=== PATIENT | female | born 1940 | race Caucasian/White ===

== ENCOUNTER 2017-01-24 15:16 | Inpatient (IN) | payer OTHER ==
--- NOTE | ~2017-01-24 | HP ---
History And Physical [place] [id number] [facility] [place] [place]. [address] NAME: NAPOLEON OJEDA : 42 STATUS : ADM IN [facility]#: [id number] AGE: 76 ADM/REG DATE : 01/24/17 MR#: [id number] REPORT SERV DATE: 01/25/17 DICTATED BY: RICHELLE PEREZ DATE: 01/24/17 REPORT STATUS : Draft TRANSCRIBED BY: MODL DATE: 01/24/17 DATE OF ADMISSION: 01/24/2017 REASON FOR ADMISSION: Transfer from [facility] for Dr. Alberto to potentially do an ERCP and for Infectious Disease to help manage with AJ bacteremia. CONSULTANTS: PCP is Dr. Mao Campo. Supervisor Quilting is Dr. Simone Mosquera. Painter And Body Work is Dr. Jorge Mosquera. CHIEF COMPLAINT: "I am still having nausea and vomiting." HISTORY OF PRESENT ILLNESS: A 76-year-old white female with a history of diet-controlled diabetes; obstructive sleep apnea; hypoparathyroidism, status post parathyroidectomy; lymphoma, status post chemotherapy approximately six years ago, still followed by Dr. Haji periodically at [facility]. The patient presented to [facility] on 01/12/2017 with complaints of nausea, vomiting, abdominal pain with epigastric and right upper quadrant pain. She was recently admitted to that hospital for COPD exacerbation and a recent EGD with dilation. CT scan done in the ER on the showed an increasing dilated intra- and extra-hepatic biliary duct as well as a hiatal hernia. She had an elevated white blood cell count of 13,000 and a negative urinalysis. She was admitted for nausea, vomiting, right upper quadrant abdominal pain with elevated alkaline phosphatase, and dilated biliary ducts concerning for cholangitis. The patient had a complicated hospital course which would explain why she had been there for two weeks. She was initially started on broad-spectrum antibiotics for concern for cholangitis. GI Medicine was consulted. During that time, she had a COPD exacerbation and Pulmonary Medicine was consulted. An MRCP was ordered by GI which did not reveal any retained stone, but did confirm history of cholecystectomy and intra- and extra-hepatic biliary ductal dilatation. GI Medicine proceeded to do an ERCP, however, they were not able to visualize and cannulate the common bile duct, possibly x2 upwards. After the procedure, she had an elevation in her lipase that was concerning for a post ERCP pancreatitis. On 01/19/2017, the patient developed a fever, blood cultures were drawn which then grew out reportedly methicillin-resistant Staphylococcus epidermidis. She was then started on vancomycin and the broad-spectrum antibiotics that were initially started had been discontinued. Her white count had improved and they repeated blood cultures two days later, which showed one of two being still positive. There was concern for a possible port infection. The patient states that [facility] has been accessing her port as they have been having a difficult time maintaining an IV. The patient also reports that her port was accessed periodically at Dr. Haji's office just to maintain it. The last time it was used prior to admission was approximately in July or August for a blood transfusion at Dr. Haji's office. The patient was transferred to [facility] for Infectious Disease to help manage her bacteremia along with Dr. Shultz to perform an ERCP since it was difficult to cannulate by their GI doctor. The patient continues to have some nausea, vomiting, epigastric and right upper quadrant pain. She was on a regular diet at [facility] prior to transfer and says she does periodically vomit. The patient states that she feels like she has lost weight. Otherwise, the patient denies any diarrhea, chest pain, or shortness of breath. A transthoracic echocardiogram was done at [facility] which showed an EF of 78%, diastolic dysfunction stage I, but no obvious vegetation History And Physical [address] [address] NAME: NAPOLEON OJEDA : 42 STATUS : ADM IN [facility]#: [id number] AGE: 76 ADM/REG DATE : 01/24/17 MR#: [id number] REPORT SERV DATE: 01/25/17 DICTATED BY: RICHELLE PEREZ DATE: 01/24/17 REPORT STATUS : Draft TRANSCRIBED BY: MODL DATE: 01/24/17 on the visualized valves. REVIEW OF SYSTEMS: As per HPI. Otherwise, 10-point system review is negative. PAST MEDICAL HISTORY: Type 2 diabetes with hemoglobin A1c of 6.3; anemia of chronic disease; history of gout; history of coronary artery disease, status post GA in 1999; peripheral vascular disease; hypothyroidism, status post thyroidectomy; history of chronic hypoparathyroidism, status post parathyroidectomy; COPD. PAST SURGICAL HISTORY: She denies any cardiac stents or CABG. She did have a thyroidectomy and a parathyroidectomy and a cholecystectomy. She had a right carotid endarterectomy in January 2015. She had C-spine surgery, bilateral cataract surgery, history of neck surgery, index finger amputated, port placement. ALLERGIES: TO PENICILLIN AND CODEINE. SOCIAL HISTORY: She denies any alcohol or tobacco use. She has seven children. Lives in [place] with her daughter. FAMILY HISTORY: Brother has cardiovascular disease. Mother and father have diabetes. Brother has had a heart attack. Mother and father had a stroke. MEDICATIONS: Include allopurinol 100 mg daily, amlodipine 10 mg daily, calcitriol 0.5 mcg daily, calcium carbonate 500 mg q.i.d., Colace, DuoNeb, iron sulfate 325 mg daily, gabapentin 100 mg three times a day, levothyroxine 125 mcg daily, Lorazepam 0.5 mg at bedtime, magnesium oxide 400 mg twice a day, mirtazapine 45 mg at bedtime, Dousman p.r.n. pain, Pulmicort inhaler twice a day, ranitidine at bedtime, Rozerem 8 mg at bedtime daily. PHYSICAL EXAMINATION: VITAL SIGNS: Blood pressure is 148/65, saturating 92% on room air, temperature is 97.6, pulse is 85, respirations 20. GENERAL: She is no acute distress. Alert and oriented x3. Very pleasant. HEENT: Normocephalic and atraumatic head. Extraocular muscles are intact. Oropharynx is clear. NECK: Supple. No JVD. CARDIAC: Regular rhythm. No murmurs, rubs, or gallops. PULMONARY: Diffuse crackles, some mild wheezing. ABDOMEN: Obese, soft. It is tender to palpation in the epigastric area in the right upper quadrant. Positive bowel sounds. EXTREMITIES: No clubbing, cyanosis, or edema. NEUROLOGIC: No focal deficits. PSYCHIATRIC: The patient is cooperative. Mood is appropriate. SKIN: Warm and dry. LABORATORY DATA: Labs at outside hospital show white blood cell count of 5.8, hemoglobin 9.7, hematocrit 30, platelet of 277. Sodium of 141, potassium 4, chloride 103, carbon History And Physical [address] [place]. [address] NAME: NAPOLEON OJEDA : 42 STATUS : ADM IN PAT#: [id number] AGE: 76 ADM/REG DATE : 01/24/17 MR#: [id number] REPORT SERV DATE: 01/25/17 DICTATED BY: RICHELLE PEREZ DATE: 01/24/17 REPORT STATUS : Draft TRANSCRIBED BY: JESSE DATE: 01/24/17 dioxide 30, BUN 7, creatinine 0.7, glucose 111, calcium 9.3, albumin is 3. Alkaline phosphatase is 151, ALT 26, AST 24, total bilirubin 0.3, phosphorus is 5.5, magnesium 1.6. Vancomycin trough is 9.8 on 01/22/2017. IMPRESSION: 1. Methicillin resistant Staphylococcus epidermidis bacteremia, source unknown, most likely due to her port infection. 2. Intra- and extra-hepatic ductal dilatation with nausea, vomiting, abdominal pain. 3. Post ERCP pancreatitis. 4. Chronic obstructive pulmonary disease with mild exacerbation. 5. Hypocalcemia. 6. Chronic hypoparathyroidism, status post parathyroidectomy. 7. Diet-controlled type 2 diabetes with an A1c of 6.3. 8. Hypothyroidism. PLAN: Obtain a CBC, CMP, procalcitonin, and repeat blood cultures. We will also obtain a urinalysis and culture. Check a thyroid panel. Continue vancomycin per pharmacy protocol. We will consult Dr. Alberto to evaluate for any ERCP. Consult Infectious Disease to help with bacteremia. May need port removal. Obtain a CT chest, abdomen, and pelvis with IV and p.o. contrast to evaluate any ductal dilatation and along with her pancreas and any chest issues. Continue her on prednisone 40 mg once a day. STERLING/JESSE Richelle Perez MD / [id number] CC: MD Mao Sarabia MD Robert F Marcum, M.D. James Marcum, M.D.
--- NOTE | ~2017-01-24 | OP ---
Record Of Operation [facility] [address] [place]. [address] NAME: NAPOLEON DANIEL : 42 STATUS : ADM IN [facility]#: [id number] AGE: 76 ADM/REG DATE : 01/24/17 MR#: [id number] REPORT SERV DATE: 01/27/17 DICTATED BY: SAIMA SOLO DATE: 01/27/17 REPORT STATUS : Draft TRANSCRIBED BY: MODL DATE: 01/27/17 DATE OF PROCEDURE: 01/27/2017 PREOPERATIVE DIAGNOSES: 1. Infected right subclavian Port-A-Cath. 2. MRSA bacteremia. POSTOPERATIVE DIAGNOSES: 1. Infected right subclavian Port-A-Cath. 2. MRSA bacteremia. PROCEDURE: Right subclavian Port-A-Cath removal. ATTENDING SURGEON: Saima Solo MD CHIEF SURGEON: Roselyn Swanson. ANESTHESIA: Local. EBL: Minimal. COMPLICATIONS: None. SPECIMEN: Port-A-Cath with tubing. INDICATIONS FOR PROCEDURE: Ms. Daniel is a 76-year-old female, who was admitted to the hospital three days ago with bacteremia and she was ultimately found to have MRSA with concern of Port-A-Cath infection. For that reason, we have been asked to remove her Port-A- Cath. Risks and benefits were discussed with the patient in detail and she elected to proceed. DESCRIPTION OF PROCEDURE: The patient was seen and examined in her room. She was noted to have a right subclavian Port-A-Cath. The affected area was prepped and draped in the usual sterile fashion. Local anesthetic was used to infiltrate her previous skin incision. Using a 15 blade scalpel, the incision was created as well as dissected through the subcutaneous tissues sharply with a scalpel. Once down to the level of the Port-A-Cath bolster, Metzenbaum scissors were used to circumferentially dissect the bolster. A 15 blade scalpel was used to open the capsule surrounding the Port-A-Cath. The Port-A-Cath was removed from the capsule. 3-0 Vicryl suture was placed in a [id number] fashion around the site of tubing entry. The Port-A-Cath was attached, tubing was removed, and the catheter perhaps ligated with the 0 Vicryl suture. This was submitted to Pathology. The wound was irrigated. There was no evidence of purulence. The skin was then reapproximated with interrupted inverted 3-0 Vicryl suture, and sterile dressing was applied. The patient tolerated the procedure well. DICTATED BY: Roselyn Swanson MD Record Of Operation [address] [address] NAME: NAPOLEON DANIEL : 42 STATUS : ADM IN PAT#: [id number] AGE: 76 ADM/REG DATE : 01/24/17 MR#: [id number] REPORT SERV DATE: 01/27/17 DICTATED BY: SAIMA SOLO SOBIA DATE: 01/27/17 REPORT STATUS : Draft TRANSCRIBED BY: MODDaniela DATE: 01/27/17 /JESSE Saima Solo MD / [id number] CC: Alan Menchaca MD
--- NOTE | ~2017-01-24 | EGD ---
EGD REPORT [facility] [address] [address] NAME: SHIRLEY DANIEL : 42 STATUS : ADM IN PAT#: [id number] AGE: 76 ADM/REG DATE : 01/24/17 MR#: [id number] REPORT SERV DATE: 01/26/17 DICTATED BY: ELISEO OLSEN DATE: 01/26/17 REPORT STATUS : Draft [facility]ANS[facility]ED [facility]: [facility] DATE: 01/26/17 [facility] Patient Name: Shirley Daniel. Date of : 1940 Attending MD: ELISEO OLSEN MD Procedure Date No Time: 01/26/2017 Procedure: Upper EUS Indications: Common bile duct dilation (acquired) seen on CT scan Medicines: Monitored Anesthesia Care Complications: No immediate complications. Estimated blood loss: Minimal. Procedure: Pre-Anesthesia Assessment: - ASA Grade Assessment: IV - A patient with severe systemic disease that is a constant threat to life. After obtaining informed consent, the endoscope was passed under direct vision. Throughout the procedure, the patient's blood pressure, pulse, and oxygen saturations were monitored continuously. The Endoscope was introduced through the mouth, and advanced to the second part of duodenum. The GIF [id number] was introduced through the mouth, and advanced to the second part of duodenum. The upper EUS was accomplished without difficulty. The patient tolerated the procedure well. Findings: Endoscopic Finding : The examined esophagus was normal. A medium-sized hiatus hernia was present. Patchy mild inflammation characterized by erosions and erythema was found in the gastric body and in the gastric antrum. Biopsies were taken with a cold forceps for Helicobacter pylori testing. Estimated blood loss was minimal. The examined duodenum was endoscopically normal. Endosonographic Finding : There was no sign of significant endosonographic abnormality in the ampulla. No masses were identified. There was dilation in the common bile duct which measured up to 13 mm. Endosonographic imaging of the common bile duct showed no stones, no sludge and no stricture. There was no sign of significant endosonographic abnormality in the entire pancreas. No pathologic lymphadenopathy, no masses, no cysts, the pancreatic duct was thin in caliber. Endosonographic imaging of the visualized portion of the liver showed no abnormalities. No lymphadenopathy seen. EGD REPORT [id number] [place]. [address] NAME: SHIRLEY DANIEL : 42 STATUS : ADM IN [facility]#: [id number] AGE: 76 ADM/REG DATE : 01/24/17 MR#: [id number] REPORT SERV DATE: 01/26/17 DICTATED BY: ELISEO OLSEN DATE: 01/26/17 REPORT STATUS : Draft TRANSCRIBED BY: [employer] DATE: 01/26/17 A limited doppler examination was performed and revealed no significant vascular abnormalities. Impression: - Hiatus hernia. - Gastritis. Biopsied. - There was dilation in the common bile duct which measured up to 13 mm. This is likely physiologic and a consequence of prior cholecystectomy. No stones or sludge seen on the entire examination. No suggestion of obstruction. Recommendation: - [facility] patient to [facility] care. - Await path results. - Use Protonix (pantoprazole) 40 mg PO daily. - Clear liquid diet. - ERCP not indicated Procedure Code(s): --- Professional --- 57022, Esophagogastroduodenoscopy, flexible, transoral; with endoscopic ultrasound examination, including the esophagus, stomach, and either the duodenum or a surgically altered stomach where the jejunum is examined distal to the anastomosis 60967, 59, Esophagogastroduodenoscopy, flexible, transoral; with biopsy, single or multiple Diagnosis Code(s): --- Professional --- K44.9, Diaphragmatic hernia without obstruction or gangrene K29.70, Gastritis, unspecified, without bleeding K83.8, Other specified diseases of biliary tract CPT copyright 2013 [employer]. All rights reserved. The codes documented in this report are preliminary and upon assembler truck trailer review may be revised to meet current compliance requirements. Eliseo Olsen MD ELISEO OLSEN MD 01/26/2017 7:55 AM This report has been signed electronically. Number of Addenda: 0 Note Initiated On: 01/26/2017 7:04 AM Scope Withdrawal Time 0 hours 0 minutes 0 seconds EGD REPORT [facility] [address] [address] NAME: SHIRLEY DANIEL : 42 STATUS : ADM IN PAT#: [id number] AGE: 76 ADM/REG DATE : 01/24/17 MR#: [id number] REPORT SERV DATE: 01/26/17 DICTATED BY: ELISEO OLSEN DATE: 01/26/17 REPORT STATUS : Draft [facility]ANSCRIBED BY: [facility] DATE: 01/26/17 [facility] [address] [address]
--- NOTE | ~2017-01-24 | CN ---
Consultation Report [facility] [address] [place]. [address] NAME: NAPOLEON DANIEL : 42 STATUS : ADM IN [facility]#: [id number] AGE: 76 ADM/REG DATE : 01/24/17 MR#: [id number] REPORT SERV DATE: 01/25/17 DICTATED BY: REGINA SALTER DATE: 01/25/17 REPORT STATUS : Draft TRANSCRIBED BY: MODDaniela DATE: 01/25/17 GI CONSULTATION DATE OF CONSULTATION: 01/25/2017 REASON FOR CONSULTATION: Evaluation and management of patient's nausea, vomiting, need for ERCP. HISTORY OF PRESENT ILLNESS: Ms. Daniel is a pleasant 76-year-old female patient, who was a transfer from [facility] on 01/24/2017. She was admitted there on 01/12/2017 secondary to a chief complaint of nausea, vomiting. She had a CT scan that showed ductal dilatation. Elevated alkaline phosphatase only. Questionable cholangitis. She was maintained on broad-spectrum antibiotics. GI was consulted. They did see her. They ordered MRCP that did not confirm retained stones. They proceeded with an ERCP on 01/16/2017, however, this was a difficult exam, and they were unable to cannulate the common bile duct. She did develop elevated pancreatic enzymes, status post ERCP. She had low- grade fever. Blood cultures were drawn on the , which showed AJ bacteremia. She was to see initially Dr. Shultz in the outpatient setting for endoscopic ultrasound and ERCP, however, she has had positive blood cultures. Symptoms have persisted thus prompting her transfer here. She states that she had her gallbladder removed roughly four months ago for symptoms similar to what she presented with on the , status post cholecystectomy. She had no improvement in her symptoms. The day of admission, she states, she awoke around 4 a.m. with abdominal pain, took a pain tablet which she states only stayed down for a few minutes. She started to have nausea and vomiting with repeated retching and vomiting. No coffee grounds. No hematemesis. She has a history of EGD with esophageal dilation on 12/19/2016. Per review of the notes, she had normal esophagus, proximal, middle, and distal segments. No strictures or masses. Dilated with 54-Yi Savary showed a 5 cm hiatal hernia. Nonerosive gastritis in the antrum of the stomach with biopsies being taken. Duodenum was normal. Her liver enzymes have been normal. She has eaten today, but states she has vomited that up also. I have discussed with her that we will plan on pursuing endoscopic ultrasound tomorrow with Dr. Alberto. Risks, benefits, alternatives, complications have been detailed for her to include, but not limited to, risk of bleeding, perforation, infection, reaction to medications, as well as cardiac and pulmonary side effects. It should be noted that she does have a right upper chest Port-A-Cath, which is a potential consideration of her bacteremia and that is being considered for removal also. PAST MEDICAL HISTORY: Type 2 diabetes, diet controlled; anemia of chronic disease; gout; coronary artery disease, status post [place]; peripheral vascular disease; hypothyroidism, status post thyroidectomy; history of chronic hypoparathyroidism, status post parathyroidectomy; COPD. PAST SURGICAL HISTORY: Cardiac stents and CABG, thyroidectomy, parathyroidectomy, cholecystectomy, right carotid endarterectomy, C-spine surgery, bilateral cataract surgery, index finger amputation, Port-A-Cath placement, neck surgery. Consultation Report [address] [place]. [address] NAME: NAPOLEON DANIEL : 42 STATUS : ADM IN [facility]#: [id number] AGE: 76 ADM/REG DATE : 01/24/17 MR#: [id number] REPORT SERV DATE: 01/25/17 DICTATED BY: REGINA SALTER DATE: 01/25/17 REPORT STATUS : Draft TRANSCRIBED BY: JESSE DATE: 01/25/17 ALLERGIES: PENICILLIN AND CODEINE. SOCIAL HISTORY: Denies alcohol, tobacco, or illicits. She lives in [place] with one daughter. FAMILY HISTORY: Noncontributory from a GI standpoint. HOME MEDICATIONS: Consist of allopurinol, amlodipine, calcitriol, calcium carbonate, Colace, DuoNebs, iron sulfate, gabapentin, levothyroxine, lorazepam, magnesium oxide, mirtazapine, [place], Pulmicort, ranitidine, Rozerem. REVIEW OF SYSTEMS: A 10-point review of systems has been obtained with pertinent positives being addressed in the history of present illness. PHYSICAL EXAMINATION: VITAL SIGNS: Temperature 97.6, pulse 80, respirations 18, blood pressure is 132/60. NEURO: Reveals an alert female, resting in bed with no obvious focal deficits. GENERAL: Cooperative. No apparent distress. She is awake. She is alert. She is oriented x3. HEAD, EARS, EYES, NOSE, AND THROAT: Anicteric. Pupils are equal, round, reactive to light and accommodation. Normocephalic and atraumatic. NECK: Supple. No JVD. No palpable nodes. LUNGS: Coarse with some mild crackles and mild expiratory wheezing in the upper lobes. CARDIOVASCULAR: Regular rate and rhythm. S1 and S2. No murmurs, rubs, gallops, S3, or S4 appreciated. ABDOMEN: Soft and obese. Active bowel sounds. No distention. Right upper quadrant mildly tender to palpation without rebound or guarding. EXTREMITIES: No edema. Normal distal pulses. SKIN: Warm, dry, and intact. PERTINENT LABORATORY DATA: Sodium 145, potassium 4.2, BUN is 7, creatinine 0.94. White count is 9.3, hemoglobin 9.8, hematocrit is 31.6. INR of 1. ASSESSMENT: 1. Nausea, vomiting. 2. Right upper quadrant abdominal pain. Dilated intra and extrahepatic ducts on CT. 3. Methicillin-resistant Staphylococcus epidermidis bacteremia. 4. Chronic obstructive pulmonary disease with exacerbation, improved. 5. Diet-controlled diabetes. PLAN: 1. N.p.o. after midnight. 2. Hold Lovenox. Consultation Report [address] [address] NAME: NAPOLEON DANIEL : 42 STATUS : ADM IN [facility]#: [id number] AGE: 76 ADM/REG DATE : 01/24/17 MR#: [id number] REPORT SERV DATE: 01/25/17 DICTATED BY: REGINA SALTER DATE: 01/25/17 REPORT STATUS : Draft TRANSCRIBED BY: MODL DATE: 01/25/17 3. EUS/EGD in the morning. 4. Follow labs. BARBARA/MODL Coleman LUCILLE [place] / [id number] CC: Jordi Perez MD
--- NOTE | ~2017-01-24 | CN ---
Consultation Report [facility] [address] [place]. [address] NAME: NAPOLEON OJEDA : 42 STATUS : ADM IN [facility]#: [id number] AGE: 76 ADM/REG DATE : 01/24/17 MR#: [id number] REPORT SERV DATE: 01/25/17 DICTATED BY: DERRICK GONG DATE: 01/25/17 REPORT STATUS : Draft TRANSCRIBED BY: MODL DATE: 01/25/17 INFECTIOUS DISEASE CONSULT DATE OF CONSULTATION: REASON FOR CONSULT: MRSE bacteremia. HISTORY OF PRESENT ILLNESS: A 76-year-old white lady with remote history of lymphoma requiring port placement, COPD, coronary artery disease, thyroidectomy, diabetes, gout, recent cholecystectomy who was transferred from [facility] for biliary duct dilatation and GI evaluation. She also had MRSE bacteremia. She tells me she had cholecystectomy, maybe about 3 months ago. Then she had another admission this year with pneumonia or COPD exacerbation. She has had on and off nausea and vomiting. She does not know if she had a fever at home, possibly subjective fevers but she does not check it at home. She had a port placed many years ago when she was treated by Dr. Haji for lymphoma. It sounds like she had initial radiation therapy, then chemotherapy. The port is being used just every once in a while. More recently, in August, she had a blood transfusion. With the recent admission at [facility], [place] apparently, the port was accessed and used. She was admitted on the 04 of January at [facility] [place] with nausea, vomiting, right upper quadrant pain. They also reported fever and chills although again the patient did not check her temperature. A CT scan showed dilated intra and extra-hepatic biliary ducts and common bile duct of 16 mm. She had an MRCP, I do not have that report and there is an attempt to do an ERCP which was not successful but there is some increase in pancreatic enzymes. While in the hospital, she had blood cultures drawn on 01/19/2017 because of reported low- grade fever. The source of the blood culture is not recorded but 2 of 2 specimens grew methicillin-resistant Staph epidermidis with CHARLOTTE to vancomycin of 2. Of note, the procalcitonin at that time was 0.3. She was started on vancomycin IV. Repeat blood cultures on 01/21/2017 is one of two specimens drawn from a port positive for coagulase- negative staph. The patient was also given steroids supposedly for COPD exacerbation. She was transferred to [facility] yesterday for GI and ID evaluation. A CT scan with contrast showed some small noncalcified lung nodules as well as some calcified granulomas, common bile duct of 13 mm and a hiatal hernia. She is afebrile although she is on steroids. She has a right upper quadrant pain. No acute shortness of breath. No port site pain, just tape irritation. She would like to eat. She does not report nausea. LAB WORK: Lab work here shows a creatinine of 0.9, alkaline phosphatase 159, ALT 27, AST 22, WBC 9. Urinalysis is unremarkable. Consultation Report [address] [place]. [address] NAME: NAPOLEON OJEDA : 42 STATUS : ADM IN [facility]#: [id number] AGE: 76 ADM/REG DATE : 01/24/17 MR#: [id number] REPORT SERV DATE: 01/25/17 DICTATED BY: DERRICK GONG DATE: 01/25/17 REPORT STATUS : Draft TRANSCRIBED BY: JESSE DATE: 01/25/17 PAST MEDICAL HISTORY: As I mentioned above plus history of cholecystectomy, appendectomy, diabetes, coronary artery disease. She had thyroid cancer status post surgery so now she is hypothyroid and hypoparathyroid. She had history of one seizure episode. She might have rheumatoid arthritis, but she is not sure. She had C-spine surgery. She had partial left index finger amputation. Also, the chart mentions pulmonary fibrosis. ALLERGIES: ALTHOUGH THE CHART LISTS PENICILLIN AND CODEINE, SHE DOES NOT THINK SHE HAS BEEN ALLERGIC TO PENICILLIN. SOCIAL HISTORY: Lives with daughter and son-in-law. She had second-hand smoking exposure. FAMILY HISTORY: Diabetes and heart disease. MEDICATIONS: On admission at [facility] [place] indicated allopurinol, amlodipine, calcitriol, calcium carbonate, Cipro, docusate, DuoNeb, iron, gabapentin, levothyroxine, lorazepam at bedtime, magnesium, mirtazapine, Ollie as needed, Pulmicort, ranitidine, and Rozerem at bedtime. PHYSICAL EXAMINATION: GENERAL: She is alert, awake. HEENT: She has dry oral mucosa. LUNGS: Coarse sounds. No wheezes, rhonchi, or rales. HEART: Distant sounds. Regular rhythm. ABDOMEN: It is really unclear. There is no reproducible pain when distracted. SKIN: No sacral decubitus. No skin rash that I can see. Right chest port without erythema. Hands and feet without signs of emboli. ASSESSMENT/PLAN: 1. AJ bacteremia. Concern for port infection which is possible. She has a remote history of lymphoma that is now treated but the port is not needed for that purpose. We thought it is reasonable to remove the port and that is what she wants to do. Continue IV vancomycin, meanwhile. 2. She was admitted with intermittent nausea, vomiting and right upper quadrant pain, had dilated biliary ducts. She is seen by GI, and ERCP is planned for tomorrow. 3. Many medical problems as listed. 4. She states she is not allergic to penicillin. 5. Suggest tapering down the steroids. JOSEPH/JESSE Derrick Gong M.D. Consultation Report [address] [address] NAME: NAPOLEON OJEDA : 42 STATUS : ADM IN [facility]#: [id number] AGE: 76 ADM/REG DATE : 01/24/17 MR#: [id number] REPORT SERV DATE: 01/25/17 DICTATED BY: DERRICK GONG DATE: 01/25/17 REPORT STATUS : Draft TRANSCRIBED BY: MODL DATE: 01/25/17 / [id number] CC: Alan Menchaca MD
--- NOTE | ~2017-01-24 | DS ---
Discharge Summary [facility] [address] [place]. [address] NAME: NAPOLEON OJEDA : 42 STATUS : DIS IN PAT#: [id number] AGE: 76 ADM/REG DATE : 01/24/17 MR#: [id number] REPORT SERV DATE: 01/29/17 DICTATED BY: RUBEN CALLE DATE: 01/28/17 REPORT STATUS : Draft TRANSCRIBED BY: MODL DATE: 01/28/17 ADMISSION DATE: 01/24/2017 DISCHARGE DATE: 01/28/2017 The patient is a 76-year-old female with a history of coronary artery disease, peripheral vascular disease, hypothyroidism, diabetes type 1, and hypertension, who was transferred from [facility] for an ERCP by Dr. Alberto for management of MRSA bacteremia. For further details, please refer to H and P dictated by Dr. Perez on 01/25/2017. HOSPITAL COURSE: Upon arrival to [facility], GI was consulted for the ERCP. The patient was taken to the GI suite where an EGD was performed. Per evaluation by Gastroenterology, there was no indication for an ERCP. The EGD also noted no significant findings. The patient returned to the medical floor for further management. Also given the history of MRSA bacteremia, Infectious Disease was also consulted. The patient has been seen by Infectious Disease throughout her hospitalization. Likely etiology of MRSA bacteremia was deemed to be secondary to her port. Surgery was consulted to assist with port removal. The patient is status post port removal. She has remained hemodynamically stable. Per recommendations of Infectious Disease, the patient's will need seven more days of IV antibiotics. Given this recommendation, case management was consulted to assist with placement in a shelter facility where IV antibiotics can be administered. Placement has been found for patient, and insurance has approved the transfer of the patient to that facility. Of note, throughout her hospitalization, the patient has remained hemodynamically stable. Her chronic medical problems were also managed while in-house of note COPD. The patient did have wheezes on exam prompting initiation of steroids. The patient has responded very well to treatment. Given her hemodynamic stability and given her completion of workup, the patient will be discharged to shelter facility to complete a seven- day course of IV antibiotics. Plan has been discussed with the patient who voices understanding and is agreeable with this plan. DISCHARGE DIAGNOSES: 1. Methicillin-resistant staphylococcus aureus bacteremia. 2. Ductal dilatation, status post EGD. 3. Chronic obstructive pulmonary disease. 4. Nausea and vomiting. 5. Hypothyroidism. 6. Hypertension. DISCHARGE PHYSICAL EXAMINATION: VITAL SIGNS: Blood pressure 127/57 with a pulse of 88, respirations 17, O2 saturation 98% on room air, and temperature 97.6. GENERAL: The patient noted sitting in chair, in no acute distress. Appears stated age. Speaking in full sentences. HEENT : Normocephalic, atraumatic. Extraocular motors intact. Moist oral mucosa. The patient is edentulous. NECK: Trachea midline and symmetric. No JVD noted. No masses felt. CHEST: Nontender to palpation. LUNGS: Clear to auscultation bilaterally with mild very minimal wheezing present. Discharge Summary [address] [address] NAME: NAPOLEON OJEDA : 42 STATUS : DIS IN [facility]#: [id number] AGE: 76 ADM/REG DATE : 01/24/17 MR#: [id number] REPORT SERV DATE: 01/29/17 DICTATED BY: RUBEN CALLE DATE: 01/28/17 REPORT STATUS : Draft TRANSCRIBED BY: JESSE DATE: 01/28/17 CARDIOVASCULAR: Regular rate and rhythm. S1, S2. I did not appreciate any murmurs, rubs, or gallops. ABDOMEN: Soft. Positive bowel sounds. Nontender. Nondistended. EXTREMITIES: No cyanosis, no clubbing, no edema. NEURO: Alert and oriented x3. No focal deficits appreciated. DISCHARGE MEDICATIONS: Amlodipine 10 mg p.o. daily, gabapentin 100 mg p.o. three times a day, levothyroxine 137 mcg p.o. daily, mirtazapine 45 mg p.o. at bedtime, Movantik 25 mg p.o. daily, prednisone 20 mg p.o. daily for five days, MiraLAX powder one pack p.o. daily, vancomycin IV per ID orders, ranitidine 300 mg p.o. daily, omeprazole 20 mg p.o. daily, magnesium oxide 400 mg p.o. twice a day, allopurinol 300 mg p.o. daily, calcitriol 0.25 mcg p.o. daily, vitamin D 50,000 units p.o. on Mondays, and aspirin 81 mg p.o. daily. CONSULTANTS: Dr. Patterson of Infectious Disease, Dr. Alberto of GI and/or Surgery. PROCEDURES: EGD performed on 01/26/2017. DISPOSITION: The patient will be discharged to shelter facility to complete a seven- day course of IV vancomycin. ACTIVITY: As tolerated. DIET: As tolerated. Greater than 30 minutes was spent providing counseling, medication reconciliation, dictation of note, discussion of care with nursing staff and case management, coordinating, and planning discharge. MORGAN/JESSE Ruben Calle MD / [id number] CC: Ruben Calle MD UNKNOWN
[~2017-01-24 15:16] MED LIST: AMB5 PO; ATV.5 PO; FORTAMET500 MG PO; LEVOTHYROXIN100 MCG PO; NITROSTAT0.4 MG SL; NORV10 PO; PROAIR HFA INH; RANITIDINE300 MG PO; ROCALTROL0.25 MCG OR; SYMBICORT 160/41 INH INH; ULTRAM50 PO; ZOCOR40 PO
[2017-01-24 17:20] LABS: ASCORBIC ACID (UR NOT ORDER) NEG (NEG); BILIRUBIN, URINE NEGATIVE (NEG); KETONE, URINE NEGATIVE (NEG); LEUKOCYTE ESTERASE(NOT OR NEG (NEG); WBC (NOT ORDERED) (RFLEX) < 1 (0-5)
[2017-01-24 17:56] LABS: CREATININE 1.07 MG/DL (0.55-1.02); GFR AFRICAN AMERICAN 59 ML/MIN (>=60); GFR NON AFRICAN AMERICAN 51 ML/MIN (>=60)
[2017-01-24 18:19] LABS: A/G RATIO 0.7 (0.7-1.9); ALBUMIN 2.7 G/DL (3.5-5.0); ALKALINE PHOSPHATASE 185 U/L (45-117); BUN (BLOOD UREA NITROGEN) 8 MG/DL (6-23); CALCIUM, SERUM 10.9 MG/DL (8.5-10.4); CHLORIDE, SERUM 103 MMOL/L (96-112); CO2 (CARBON DIOXIDE) 28 MMOL/L (24-34); FREE T4 1.51 NG/DL (0.76-1.46); GLOBULIN 3.9 G/DL (2.5-4.1); GLUCOSE, SERUM 174 MG/DL (60-99); PHOSPHORUS, SERUM 4.4 MG/DL (2.5-4.5); SGOT(AST) 28 U/L (5-40); SGPT(ALT) 35 U/L (5-65); SODIUM, SERUM 142 MMOL/L (135-148); TOTAL BILIRUBIN 0.3 MG/DL (0-1.2); TOTAL PROTEIN 6.6 G/DL (6.0-8.5); ULTRASENSITIVE TSH 0.794 MCIU/ML (0.358-3.740)
[2017-01-24 18:20] LABS: POTASSIUM, SERUM 4.7 MMOL/L (3.5-5.3)
[2017-01-24 18:27] LABS: BASOPHILS 0.2 %; BASOPHILS ABSOLUTE 0.02 10/3/uL (0.0-0.16); EOSINOPHILS 0 %; HEMATOCRIT 33.5 % (36.0-48.0); HEMOGLOBIN 10.4 g/dL (12.0-16.0); IMMATURE GRANULOCYTES 0.3 %; IMMATURE GRANULOCYTES ABSOLUTE 0.04 10/3/uL (0.0-0.11); LYMPHOCYTES 11.2 %; MEAN CORPUSCULAR HEMOGLOB 24.8 pg (26.0-34.0); MEAN CORPUSCULAR VOLUME 79.8 fL (80-100); MEAN PLATELET VOLUME 9.8 fL (9.2-13.0); MONOCYTES 2.3 %; MONOCYTES ABSOLUTE 0.29 10/3/uL (0.21-1.20); NEUTROPHILS ABSOLUTE 10.78 10/3/uL (2.02-8.40); PLATELET COUNT 363 10/3/uL (150-400); RBC DISTRIBUTION WIDTH 17.7 % (12.0-16.0); WHITE BLOOD CELLS 12.5 10/3/uL (4.5-10.5)
[2017-01-24 18:28] LABS: MANUAL DIFF NO %
[2017-01-24 18:35] LABS: PARTIAL THROMBO TIME 30.2 SEC (22.5-37.2); PROTIME (NOT ORD) 13.3 SEC (12.0-14.5)
[2017-01-24 18:44] LABS: PROCALCITONIN 0.15 ng/mL (<0.5)
[2017-01-25 05:30] LABS: BASOPHILS 0.3 %; BASOPHILS ABSOLUTE 0.03 10/3/uL (0.0-0.16); EOSINOPHILS 2.1 %; HEMATOCRIT 31.6 % (36.0-48.0); HEMOGLOBIN 9.8 g/dL (12.0-16.0); IMMATURE GRANULOCYTES 0.3 %; IMMATURE GRANULOCYTES ABSOLUTE 0.03 10/3/uL (0.0-0.11); LYMPHOCYTES 19.5 %; LYMPHOCYTES ABSOLUTE 1.82 10/3/uL (0.67-4.30); MEAN CORPUSCULAR HEMOGLOB 24.9 pg (26.0-34.0); MEAN CORPUSCULAR VOLUME 80.2 fL (80-100); MEAN PLATELET VOLUME 9.7 fL (9.2-13.0); MONOCYTES ABSOLUTE 0.93 10/3/uL (0.21-1.20); NEUTROPHILS 67.8 %; PLATELET COUNT 331 10/3/uL (150-400); RED CELL COUNT 3.94 10/6/uL (4.0-5.6); WHITE BLOOD CELLS 9.3 10/3/uL (4.5-10.5)
[2017-01-25 05:35] LABS: A/G RATIO 0.7 (0.7-1.9); ALBUMIN 2.6 G/DL (3.5-5.0); BUN (BLOOD UREA NITROGEN) 7 MG/DL (6-23); CHLORIDE, SERUM 105 MMOL/L (96-112); CO2 (CARBON DIOXIDE) 30 MMOL/L (24-34); CREATININE 0.94 MG/DL (0.55-1.02); GFR AFRICAN AMERICAN 69 ML/MIN (>=60); GFR NON AFRICAN AMERICAN 59 ML/MIN (>=60); GLOBULIN 3.6 G/DL (2.5-4.1); GLUCOSE, SERUM 91 MG/DL (60-99); POTASSIUM, SERUM 4.2 MMOL/L (3.5-5.3); SGOT(AST) 22 U/L (5-40); SGPT(ALT) 27 U/L (5-65); SODIUM, SERUM 145 MMOL/L (135-148); TOTAL BILIRUBIN 0.3 MG/DL (0-1.2); TOTAL PROTEIN 6.2 G/DL (6.0-8.5)
[2017-01-25 05:36] LABS: ALKALINE PHOSPHATASE 159 U/L (45-117); CALCIUM, SERUM 10.1 MG/DL (8.5-10.4); PHOSPHORUS, SERUM 5.4 MG/DL (2.5-4.5)
[2017-01-25 05:41] LABS: MANUAL DIFF NO %
[2017-01-25] MEDS ORDERED: NEUR300 PO (11:51)
[2017-01-25] MEDS ORDERED: RANITIDINE300 MG PO (11:52)
[2017-01-25] MEDS ORDERED: PRILO PO (11:52)
[2017-01-25] MEDS ORDERED: DUONEB INH (11:53)
[2017-01-25] MEDS ORDERED: MAGOX4 PO (11:53)
[2017-01-25] MEDS ORDERED: PROAIR HFA INH (11:54)
[2017-01-25] MEDS ORDERED: REMERON45 MG PO (11:54)
[2017-01-25] MEDS ORDERED: NORV10 PO (11:54)
[2017-01-25] MEDS ORDERED: Z300 PO (11:55)
[2017-01-25] MEDS ORDERED: LEVOTHYROXIN137 MCG PO (11:55)
[2017-01-25] MEDS ORDERED: ROCALTROL 0.0.25 MCG PO (11:55)
[2017-01-25] MEDS ORDERED: SYMBICORT 160/41 INH INH (11:55)
[2017-01-25] MEDS ORDERED: VITD PO (11:56)
[2017-01-25] MEDS ORDERED: ASAB PO (11:56)
[2017-01-26 05:57] LABS: BASOPHILS 0.5 %; BASOPHILS ABSOLUTE 0.04 10/3/uL (0.0-0.16); EOSINOPHILS 2.1 %; EOSINOPHILS ABSOLUTE 0.17 10/3/uL (0.0-0.53); HEMATOCRIT 30.7 % (36.0-48.0); HEMOGLOBIN 9.5 g/dL (12.0-16.0); IMMATURE GRANULOCYTES 0.4 %; IMMATURE GRANULOCYTES ABSOLUTE 0.03 10/3/uL (0.0-0.11); LYMPHOCYTES 21.5 %; LYMPHOCYTES ABSOLUTE 1.78 10/3/uL (0.67-4.30); MEAN CORPUS HGB CONC 30.9 g/dL (32.0-36.0); MEAN CORPUSCULAR HEMOGLOB 24.9 pg (26.0-34.0); MEAN CORPUSCULAR VOLUME 80.6 fL (80-100); MEAN PLATELET VOLUME 9.1 fL (9.2-13.0); MONOCYTES 11.1 %; MONOCYTES ABSOLUTE 0.92 10/3/uL (0.21-1.20); NEUTROPHILS 64.4 %; NEUTROPHILS ABSOLUTE 5.35 10/3/uL (2.02-8.40); PLATELET COUNT 335 10/3/uL (150-400); RBC DISTRIBUTION WIDTH 18.1 % (12.0-16.0); RED CELL COUNT 3.81 10/6/uL (4.0-5.6); WHITE BLOOD CELLS 8.3 10/3/uL (4.5-10.5)
[2017-01-26 05:58] LABS: PROTIME (NOT ORD) 13.5 SEC (12.0-14.5)
[2017-01-26 05:59] LABS: MANUAL DIFF NO %
[2017-01-26 06:04] LABS: ALBUMIN 2.5 G/DL (3.5-5.0); BUN (BLOOD UREA NITROGEN) 7 MG/DL (6-23); CHLORIDE, SERUM 109 MMOL/L (96-112); CO2 (CARBON DIOXIDE) 30 MMOL/L (24-34); CREATININE 0.86 MG/DL (0.55-1.02); GFR AFRICAN AMERICAN 77 ML/MIN (>=60); GFR NON AFRICAN AMERICAN 66 ML/MIN (>=60); GLUCOSE, SERUM 94 MG/DL (60-99); POTASSIUM, SERUM 3.9 MMOL/L (3.5-5.3); SGOT(AST) 17 U/L (5-40); SGPT(ALT) 24 U/L (5-65); SODIUM, SERUM 147 MMOL/L (135-148); TOTAL BILIRUBIN 0.3 MG/DL (0-1.2); TOTAL PROTEIN 5.9 G/DL (6.0-8.5)
[2017-01-26 06:07] LABS: ALKALINE PHOSPHATASE 147 U/L (45-117); DIRECT BILIRUBIN < 0.1 MG/DL (0.0-0.4); INDIRECT BILIRUBIN(NOT ORDER) 0.2 MG/DL (0.1-0.9)
[2017-01-27 03:29] LABS: BASOPHILS 0.3 %; BASOPHILS ABSOLUTE 0.03 10/3/uL (0.0-0.16); EOSINOPHILS 0.8 %; EOSINOPHILS ABSOLUTE 0.09 10/3/uL (0.0-0.53); HEMATOCRIT 31.1 % (36.0-48.0); HEMOGLOBIN 9.8 g/dL (12.0-16.0); IMMATURE GRANULOCYTES 0.7 %; IMMATURE GRANULOCYTES ABSOLUTE 0.08 10/3/uL (0.0-0.11); LYMPHOCYTES 25.4 %; LYMPHOCYTES ABSOLUTE 2.93 10/3/uL (0.67-4.30); MEAN CORPUS HGB CONC 31.5 g/dL (32.0-36.0); MEAN CORPUSCULAR HEMOGLOB 25.2 pg (26.0-34.0); MEAN CORPUSCULAR VOLUME 79.9 fL (80-100); MEAN PLATELET VOLUME 8.9 fL (9.2-13.0); MONOCYTES 10.1 %; MONOCYTES ABSOLUTE 1.17 10/3/uL (0.21-1.20); NEUTROPHILS 62.7 %; NEUTROPHILS ABSOLUTE 7.24 10/3/uL (2.02-8.40); PLATELET COUNT 316 10/3/uL (150-400); RBC DISTRIBUTION WIDTH 18.2 % (12.0-16.0); RED CELL COUNT 3.89 10/6/uL (4.0-5.6); WHITE BLOOD CELLS 11.5 10/3/uL (4.5-10.5)
[2017-01-27 03:30] LABS: MANUAL DIFF NO %
[2017-01-27 03:45] LABS: A/G RATIO 0.8 (0.7-1.9); ALBUMIN 2.6 G/DL (3.5-5.0); ALKALINE PHOSPHATASE 140 U/L (45-117); BUN (BLOOD UREA NITROGEN) 7 MG/DL (6-23); CALCIUM, SERUM 8.5 MG/DL (8.5-10.4); CHLORIDE, SERUM 107 MMOL/L (96-112); CO2 (CARBON DIOXIDE) 30 MMOL/L (24-34); CREATININE 0.91 MG/DL (0.55-1.02); GFR AFRICAN AMERICAN 72 ML/MIN (>=60); GFR NON AFRICAN AMERICAN 62 ML/MIN (>=60); GLOBULIN 3.3 G/DL (2.5-4.1); GLUCOSE, SERUM 96 MG/DL (60-99); POTASSIUM, SERUM 3.8 MMOL/L (3.5-5.3); SGOT(AST) 18 U/L (5-40); SGPT(ALT) 24 U/L (5-65); SODIUM, SERUM 146 MMOL/L (135-148); TOTAL BILIRUBIN 0.4 MG/DL (0-1.2); TOTAL PROTEIN 5.9 G/DL (6.0-8.5)
[2017-01-28 05:58] LABS: BASOPHILS 0.3 %; BASOPHILS ABSOLUTE 0.03 10/3/uL (0.0-0.16); HEMATOCRIT 30.9 % (36.0-48.0); HEMOGLOBIN 9.6 g/dL (12.0-16.0); IMMATURE GRANULOCYTES 0.9 %; IMMATURE GRANULOCYTES ABSOLUTE 0.09 10/3/uL (0.0-0.11); LYMPHOCYTES ABSOLUTE 2.66 10/3/uL (0.67-4.30); MEAN CORPUS HGB CONC 31.1 g/dL (32.0-36.0); MEAN CORPUSCULAR HEMOGLOB 25.1 pg (26.0-34.0); MEAN CORPUSCULAR VOLUME 80.7 fL (80-100); MEAN PLATELET VOLUME 9.1 fL (9.2-13.0); MONOCYTES 8.4 %; MONOCYTES ABSOLUTE 0.83 10/3/uL (0.21-1.20); NEUTROPHILS 61.4 %; NEUTROPHILS ABSOLUTE 6.06 10/3/uL (2.02-8.40); PLATELET COUNT 329 10/3/uL (150-400); RBC DISTRIBUTION WIDTH 18.5 % (12.0-16.0); RED CELL COUNT 3.83 10/6/uL (4.0-5.6); WHITE BLOOD CELLS 9.9 10/3/uL (4.5-10.5)
[2017-01-28 06:05] LABS: MANUAL DIFF NO %
[2017-01-28 06:29] LABS: A/G RATIO 0.8 (0.7-1.9); ALBUMIN 2.6 G/DL (3.5-5.0); BUN (BLOOD UREA NITROGEN) 7 MG/DL (6-23); CHLORIDE, SERUM 108 MMOL/L (96-112); CO2 (CARBON DIOXIDE) 28 MMOL/L (24-34); CREATININE 0.71 MG/DL (0.55-1.02); GFR AFRICAN AMERICAN 97 ML/MIN (>=60); GFR NON AFRICAN AMERICAN 83 ML/MIN (>=60); GLOBULIN 3.1 G/DL (2.5-4.1); GLUCOSE, SERUM 101 MG/DL (60-99); POTASSIUM, SERUM 3.9 MMOL/L (3.5-5.3); SGOT(AST) 15 U/L (5-40); SGPT(ALT) 21 U/L (5-65); SODIUM, SERUM 146 MMOL/L (135-148); TOTAL BILIRUBIN 0.2 MG/DL (0-1.2); TOTAL PROTEIN 5.7 G/DL (6.0-8.5)
[2017-01-28 06:30] LABS: ALKALINE PHOSPHATASE 120 U/L (45-117); CALCIUM, SERUM 8.8 MG/DL (8.5-10.4)
== END 2017-01-28 19:31 | DRG 315 ==
LOC: 7NO 15:16
PROVIDERS: Hospitalist; Internal Medicine; Internal Medicine Gastroenterology; Nurse Practitioner Family
PROC: BD47ZZZ Ultrasonography of Gastrointestinal Tract (ICD-10-PCS; 2017-01-26)
PROC: 0DB68ZX Excision of Stomach, Via Natural or Artificial Opening Endoscopic, Diagnostic (ICD-10-PCS; principal; 2017-01-26 07:00)
PROC: 0JPV0XZ Removal of Tunneled Vascular Access Device from Upper Extremity Subcutaneous Tissue and Fascia, Open Approach (ICD-10-PCS; 2017-01-27)
DX: T80.211A Bloodstream infection due to central venous catheter, initial encounter (principal); J44.1 Chronic obstructive pulmonary disease with (acute) exacerbation; E11.9 Type 2 diabetes mellitus without complications; B95.62 Methicillin resistant Staphylococcus aureus infection as the cause of diseases classified elsewhere; E03.9 Hypothyroidism, unspecified; I10 Essential (primary) hypertension; E20.9 Hypoparathyroidism, unspecified; K44.9 Diaphragmatic hernia without obstruction or gangrene; K29.70 Gastritis, unspecified, without bleeding; Z90.49 Acquired absence of other specified parts of digestive tract
CPT/HCPCS: 71260; 74177; 80048; 80053; 80076; 80202; 81001; 82150; 82565; 82962; 83036; 83690; 83735; 84100; 84145; 84439; 84443; 85025; 85610; 85730; 87040; 87070; 87493; 87493-59; 88305; 94640; 97110-GP; 97116-GP; 97161-GP; A9270-GY; C1725; J2405; J3370; Q9967